=== PATIENT | male | born 1960 | race Caucasian/White ===

== ENCOUNTER 2018-03-22 08:35 | Outpatient (CLI) | payer OTHER | END 2018-03-22 08:37 | disposition home or self-care (01) | LOC: SONOGRAMA 08:35 | DX: N20.9 Urinary calculus, unspecified (principal) ==

== ENCOUNTER 2019-01-20 15:41 | Emergency (ER) | payer OTHER ==
[~2019-01-20] VITALS: Ht 188 cm; Wt 172.4 kg
[2019-01-20] MEDS ORDERED: VALACYCLOVIR500 MG (16:18)
[2019-01-20] MEDS ORDERED: JULUCA 50-25 M1 EACH (16:18)
[2019-01-20] MEDS ORDERED: LISINOPRIL20 MG (16:19)
[2019-01-20] MEDS ORDERED: ELIQUIS5 MG (16:19)
[2019-01-20] MEDS ORDERED: CRESTOR5 MG (16:19)
[2019-01-20] MEDS ORDERED: BUPROPION XL150 MG (16:20)
[2019-01-20] MEDS ORDERED: DURICEF (16:21)
== END 2019-01-20 21:10 | disposition home or self-care (01) ==
LOC: ER 15:41
DX: N20.1 Calculus of ureter (principal)